=== PATIENT | female | born 1940 | race Caucasian/White ===

== ENCOUNTER 2024-04-07 12:43 | Outpatient (CLI) | payer MEDICARE, BC | END 2024-04-07 12:44 | disposition home or self-care (01) | LOC: CSHCT 12:43 | PROVIDERS: ATTEND Orthopaedic Surgery | DX: M54.50 Low back pain, unspecified (principal); M47.26 Other spondylosis with radiculopathy, lumbar region; S32.10XA Unspecified fracture of sacrum, initial encounter for closed fracture | CPT/HCPCS: 72131 ==

== ENCOUNTER 2024-04-21 14:30 | Outpatient (CLI) | payer MEDICARE, BC | END 2024-04-21 14:31 | disposition home or self-care (01) | LOC: CSHMAMMO 14:30 | PROVIDERS: ATTEND Orthopaedic Surgery | DX: Z13.820 Encounter for screening for osteoporosis (principal); N95.9 Unspecified menopausal and perimenopausal disorder; M54.16 Radiculopathy, lumbar region; M85.89 Other specified disorders of bone density and structure, multiple sites | CPT/HCPCS: 77080 ==